=== PATIENT | female | born 1940 | race Caucasian/White ===

== ENCOUNTER 2021-11-26 07:25 | Emergency (ER) | payer OTHER, SELFPAY ==
[~2021-11-26] VITALS: Ht 154.9 cm; Wt 63.5 kg
--- NOTE | 2021-11-26 07:45 | NUR ---
Patient to ER bed 3 to gown for evaluation. Side rails up. Report given to NAPOLEON Akbar.
[2021-11-26 07:50] VITALS: BP_SYST 145
--- NOTE | 2021-11-26 07:59 | NUR ---
Assumed care for pt. Pt is A&Ox4. No s/s of distress. VSS. Ambulatory with steady gait. Skin intact. Urine collected and sent to lab. Pt stated "I feel weak and not myself lately. I currently have a UTI and taking medications for it but I still feel very weak and tired." Pt states she has no pain. No sob, and no n/v. No medical conditions pt is aware of and NKA.
--- NOTE | 2021-11-26 08:15 | NUR ---
ER physician at bedside.
--- NOTE | 2021-11-26 08:34 | NUR ---
Covid swab done and sent to lab. Chest x-ray currently being done at bedside.
[2021-11-26 08:49] LABS: BILIRUBIN,URINE NEGATIVE (NEGATIVE); CLARITY/URINE CLOUDY (CLEAR); COLOR,URINE YELLOW (YELLOW); GLUCOSE,URINE NEGATIVE (NEGATIVE); KETONES,URINE NEGATIVE (NEGATIVE); LEUKOCYTE ESTERASE ,URINE 3+ (NEGATIVE); NITRITE, URINE NEGATIVE (NEGATIVE); PH,URINE 6.5 (5.0-8.0); PROTEIN URINE NEGATIVE (NEGATIVE); UROBILINOGEN,URINE 0.2 (0.2-1.0)
[2021-11-26 08:50] LABS: BLOOD, URINE TRACE (NEGATIVE)
[2021-11-26 09:32] LABS: BACTERIA,URINE MODERATE /HPF (None Seen); WBC,URINE 20-50 /HPF (0-3)
[2021-11-26 09:33] LABS: MUCUS,URINE 1+ /LPF (None Seen)
[2021-11-26] MEDS ORDERED: cefTRIAXone 1 GM VIAL IM ONE (10:00)
[2021-11-26] MEDS ORDERED: CEPH-548 PO (10:01)
--- NOTE | 2021-11-26 10:10 | NUR ---
Was going to give medication (Ceftiaxone) but pt refused.
[2021-11-26 10:21] VITALS: BP_SYST 130
--- NOTE | 2021-11-26 10:31 | NUR ---
Patient given written and verbal discharge instructions and verbalizes understanding. ER MD discussed with patient the results and treatment provided. Patient in stable condition. ID arm band removed. VSS. Ambulatory with steady gait. Rx of given. Opportunity for questions provided and answered. Medication side effect fact sheet provided.
== END 2021-11-26 10:21 | disposition home or self-care (01) ==
LOC: SED 07:25
DX: U07.1 COVID-19 (principal); Z79.899 Other long term (current) drug therapy
CPT/HCPCS: 36415; 71045; 81000; 87086; 87426; 99284; J0696